=== PATIENT | female | born 1955 | race Caucasian/White ===

== ENCOUNTER → 2016-11-08 | Outpatient (CLI) | payer BC ==
--- NOTE | 2016-11-08 14:42 | RAD ---
Right RIBS with chest, 3 views, 11/08/2016: History: Rib pain, injury The bony structures are demineralized. No fracture is identified. There is no evidence of underlying pneumothorax, hemothorax or pulmonary infiltrate. The heart size is normal. Moderate multilevel degenerative changes are present in the spine. IMPRESSION: No acute right rib abnormality is detected.
--- NOTE | 2016-11-08 14:44 | RAD ---
Left shoulder, 3 views, 11/08/2016: History: Shoulder pain, lifting injury The bony structures are demineralized. No fracture or dislocation is identified. There is minimal periarticular soft tissue calcification at the AC joint. IMPRESSION: No acute bony abnormality is detected.
--- NOTE | 2016-11-08 14:45 | RAD ---
Right hand, 3 views, 11/08/2016: History: Hand pain, fourth digit locking There is patchy bony demineralization. There are mild degenerative changes at scattered interphalangeal and MCP joints as well as the first CMC joint. No fracture or dislocation is identified. IMPRESSION: 1. Demineralization. 2. Mild scattered degenerative changes. 3. No acute bony abnormality is detected.
== END | disposition home or self-care (01) ==
LOC: DXRADRC 10:08
PROVIDERS: ATTEND Nurse Practitioner Family
DX: M19.041 Primary osteoarthritis, right hand (principal); M25.512 Pain in left shoulder; R07.81 Pleurodynia; M47.899 Other spondylosis, site unspecified
CPT/HCPCS: 71101; 73030; 73130

== ENCOUNTER → 2017-03-07 | Outpatient (CLI) | payer BC ==
--- NOTE | 2017-03-07 11:20 | RAD ---
DATE: March 07, 2017 EXAM: MAMMO CASI SCREENING BILATERAL HISTORY: Screening study. COMPARISON: 2015 and 2017 This study was interpreted with the benefit of Computerized Aided Detection (CAD). FINDINGS: The breast parenchyma is replaced with adipose tissue. There are no dominant suspicious masses, suspicious microcalcifications or evidence of architectural distortion. IMPRESSION: No mammographic indicators for malignancy. BI-RADS CATEGORY: 1 NEGATIVE RECOMMENDED FOLLOW-UP: 12M 12 MONTH FOLLOW-UP PQRS compliance statement: Patient information was entered into a reminder system with a target due date March 08, 2018 for the next mammogram. Mammography is a sensitive method for finding small breast cancers, but it does not detect them all and is not a substitute for careful clinical examination. A negative mammogram does not negate a clinically suspicious finding and should not result in delay in biopsying a clinically suspicious abnormality. "Our facility is accredited by the [employer] Mammography Program." The patient's breast density may affect the ability of mammography to detect breast cancer. There are 4 categories of breast density, A, B, C and D. Breast density A means that most of the breast tissue is replaced with adipose tissue and therefore is not dense. Breast density B means that the breast tissue is mildly dense and scattered. Breast density C means that the breast tissue is heterogeneously dense. Breast density D means that the breast tissue is very dense. Breast densities especially C and D may decrease the sensitivity of mammography to detect breast cancer. Therefore, the patient may benefit from 3-D breast mammography (3D breast tomography) as a part of their screening mammogram. Insurance may or may not pay for this additional imaging. The patient's breast density based on today's mammogram is category A.
== END | disposition home or self-care (01) ==
LOC: MAMMO 08:46
PROVIDERS: ATTEND Nurse Practitioner Family
DX: Z12.31 Encounter for screening mammogram for malignant neoplasm of breast (principal); N18.2 Chronic kidney disease, stage 2 (mild)
CPT/HCPCS: 77063; 77067

== ENCOUNTER → 2018-03-22 | Outpatient (CLI) | payer BC ==
--- NOTE | 2018-03-22 08:30 | RAD ---
Examination: HAND RIGHT 3V, WRIST 2V RIGHT History: Pain Comparison/Correlation: None Findings: Frontal and lateral views of the right wrist were obtained. Total 3 images of the right hand were obtained. Osteopenia noted. Degenerative narrowing of the third metacarpophalangeal joint with spurring noted. Degenerative changes of the distal radioulnar joint with spurring noted. Degenerative changes of the interphalangeal joint of the first digit and the distal interphalangeal joint of the second digit noted. No acute fracture or bony destruction. Soft tissues are grossly unremarkable. Impression: Degenerative changes. No acute process. Electronically signed by: Pardeep Best MD (03/22/2018 8:27 AM) [id number]
== END | disposition home or self-care (01) ==
LOC: PMG 08:09
PROVIDERS: ATTEND Physician Assistant Medical
DX: M19.031 Primary osteoarthritis, right wrist (principal); M77.8 Other enthesopathies, not elsewhere classified; M19.041 Primary osteoarthritis, right hand; M85.841 Other specified disorders of bone density and structure, right hand
CPT/HCPCS: 73100; 73130

== ENCOUNTER → 2018-05-29 | Outpatient (CLI) | payer BC ==
--- NOTE | 2018-05-29 17:22 | RAD ---
Right wrist 3 views. HISTORY: Injury to wrist 3 views were taken of the right wrist. There is not evidence of an acute fracture or acute osseous abnormality. There is mild arthritis at the first carpometacarpal joint with mild spurring. IMPRESSION: 1. No acute fracture noted in the right wrist. Electronically signed by: Ruslan Parson MD (05/29/2018 5:19 PM) [id number]
== END | disposition home or self-care (01) ==
LOC: PMG 10:20
PROVIDERS: ATTEND Physician Assistant Medical
DX: M18.9 Osteoarthritis of first carpometacarpal joint, unspecified (principal); M77.8 Other enthesopathies, not elsewhere classified
CPT/HCPCS: 73110

== ENCOUNTER → 2018-05-31 | Outpatient (CLI) | payer BC ==
--- NOTE | 2018-05-31 14:52 | RAD ---
DATE: 05/31/2018 EXAM: MAMMO CASI SCREENING BILATERAL HISTORY: Routine screening COMPARISON: 03/07/2017, 03/02/2016, 04/04/2015, 01/20/2012 mammographic exams This study was interpreted with the benefit of Computerized Aided Detection (CAD). Breast Density: FATTY The breast parenchyma is primarily fatty replaced. Breast parenchyma level density A. FINDINGS: Benign calcifications are stable. No masses or distortion. IMPRESSION: Benign findings. BI-RADS CATEGORY: 1 NEGATIVE RECOMMENDED FOLLOW-UP: 12M 12 MONTH FOLLOW-UP PQRS compliance statement: Patient information was entered into a reminder system with a target due date in one year for the next mammogram. Mammography is a sensitive method for finding small breast cancers, but it does not detect them all and is not a substitute for careful clinical examination. A negative mammogram does not negate a clinically suspicious finding and should not result in delay in biopsying a clinically suspicious abnormality. "Our facility is accredited by the [employer] Mammography Program."
== END | disposition home or self-care (01) ==
LOC: MAMMO 08:57
PROVIDERS: ATTEND Physician Assistant Medical
DX: Z12.31 Encounter for screening mammogram for malignant neoplasm of breast (principal); R92.8 Other abnormal and inconclusive findings on diagnostic imaging of breast
CPT/HCPCS: 77063; 77067

== ENCOUNTER 2019-06-21 20:22 | Emergency (ER) | payer MEDICARE, BC ==
[~2019-06-21] VITALS: Ht 167.6 cm; Wt 94.5 kg
[2019-06-21 20:22] VITALS: BP 110/68
--- NOTE | 2019-06-21 20:32 | PHYS DOC ---
Past History Past Medical History: Hypertension Past Surgical History: Hysterectomy, Knee Replacement, Other (shoulder) Smoking: Non-smoker Alcohol Use: None Drug Use: None General Adult EDM: Chief Complaint: nausea/vomiting and diarrhea, short of air HPI: HPI: Patient is a 63 year old female who presents for evaluation via EMS of recurrent episodes of nausea, vomiting and diarrhea that started earlier today. Furthermore she has been short of air as well. She does have the feeling of occasional palpitations. She is complaining of some pain in her epigastric area. She is concerned that she may have some gallbladder problems as well. There had been mention of atrial fibrillation but she states that she has never been diagnosed with that condition. Patient is not on a blood thinner. Patient came in with COVID precautions because of her reported shortness of air Review of Systems: Review of Systems: Constitutional: Denies fever or chills Eyes: Denies change in visual acuity HENT: Denies nasal congestion or sore throat Respiratory: Denies cough or shortness of breath Cardiovascular: Denies chest pain or edema GI: has upper abdominal pain with nausea, vomiting, and diarrhea, no bloody stools : Denies dysuria Musculoskeletal: Denies back pain or joint pain Integument: Denies rash Neurologic: Denies headache, focal weakness or sensory changes Endocrine: Denies polyuria or polydipsia Lymphatic: Denies swollen glands Psychiatric: Denies depression or anxiety Heart Score: Risk Factors: Risk Factors: DM, Current or recent (<one month) smoker, HTN, HLP, family history of CAD, obesity. Risk Scores: Score 0 - 3: 2.5% MACE over next 6 weeks - Discharge Home Score 4 - 6: 20.3% MACE over next 6 weeks - Admit for Clinical Observation Score 7 - 10: 72.7% MACE over next 6 weeks - Early Invasive Strategies Current Medications: Current Meds: Current Medications Medications (Trade) Dose Ordered Sig/Karlee Start Time Stop Time Status Last Admin Dose Admin Ondansetron HCl (Zofran) 4 mg 1X ONCE 06/21/19 20:30 06/21/19 20:31 UNV Sodium Chloride 1,000 ml @ 1,000 mls/hr 1X ONCE 06/21/19 20:30 06/21/19 21:29 UNV Physical Exam: PE: Constitutional: Well developed, well nourished, mild to moderate distress, non- toxic appearance. [] HENT: Normocephalic, atraumatic, bilateral external ears normal, oropharynx moist, no oral exudates, nose normal. [] Eyes: PERRL, EOMI, conjunctiva normal, no discharge. [] Neck: Normal range of motion, no tenderness, supple, no stridor. [] Cardiovascular:Heart rate tachy rate and rhythm, no murmur [] Lungs & Thorax: Bilateral breath sounds clear to auscultation [] Abdomen: Bowel sounds normal, soft, upper abdominal tenderness, no masses, no pulsatile masses. [] Skin: Warm, dry, no erythema, no rash. [] Back: No tenderness, no CVA tenderness. [] Extremities: No tenderness, no cyanosis, no clubbing, ROM intact, no edema. [] Neurologic: Alert and oriented X 3, normal motor function, normal sensory function, no focal deficits noted. [] Psychologic: Affect normal, judgement normal, mood normal. [] Current Patient Data: Labs: Laboratory Tests Test 06/21/19 21:11 White Blood Count 16.3 x10^3/uL Red Blood Count 4.76 x10^6/uL Hemoglobin 15.0 g/dL Hematocrit 45.6 % Mean Corpuscular Volume 96 fL Mean Corpuscular Hemoglobin 32 pg Mean Corpuscular Hemoglobin Concent 33 g/dL Red Cell Distribution Width 13.7 % Platelet Count 368 x10^3/uL Neutrophils (%) (Auto) 80 % Lymphocytes (%) (Auto) 13 % Monocytes (%) (Auto) 6 % Eosinophils (%) (Auto) 0 % Basophils (%) (Auto) 1 % Neutrophils # (Auto) 13.0 x10^3uL Lymphocytes # (Auto) 2.2 x10^3/uL Monocytes # (Auto) 1.0 x10^3/uL Eosinophils # (Auto) 0.0 x10^3/uL Basophils # (Auto) 0.1 x10^3/uL Segmented Neutrophils % 73 % Band Neutrophils % 4 % Lymphocytes % 20 % Monocytes % 3 % Platelet Estimate Adequate Sodium Level 137 mmol/L Potassium Level 3.6 mmol/L Chloride Level 100 mmol/L Carbon Dioxide Level 25 mmol/L Anion Gap 12 Blood Urea Nitrogen 23 mg/dL Creatinine 1.8 mg/dL Estimated GFR (Cockcroft-Gault) 28.2 BUN/Creatinine Ratio 13 Glucose Level 167 mg/dL Calcium Level 9.9 mg/dL Total Bilirubin 2.8 mg/dL Aspartate Amino Transf (AST/SGOT) 486 U/L Alanine Aminotransferase (ALT/SGPT) 405 U/L Alkaline Phosphatase 78 U/L Troponin I Quantitative < 0.017 ng/mL Total Protein 7.7 g/dL Albumin 3.9 g/dL Albumin/Globulin Ratio 1.0 Lipase 69531 U/L Current Medications Medications (Trade) Dose Ordered Sig/Karlee Route PRN Reason Start Time Stop Time Status Last Admin Dose Admin Ondansetron HCl (Zofran) 4 mg 1X ONCE IVP 06/21/19 21:20 06/21/19 21:21 DC 06/21/19 21:13 Sodium Chloride 1,000 ml @ 1,000 mls/hr 1X ONCE IV 06/21/19 21:20 06/21/19 22:19 DC 06/21/19 21:13 EKG: EKG: Sinus tacky rate high 90s, leftward axis, artifact present, otherwise unremarkable EKG, not STEMI, read at 2100 Radiology/Procedures: Radiology/Procedures: [place] [address] IMAGING REPORT Signed PATIENT: ALEXSANDRA GUEVARA ACCOUNT: [id number] : 1955 LOCATION: ER AGE: 63 SEX: F EXAM STATUS: REG ER ORD. PHYSICIAN: URIEL FROST DO REASON: short of air PROCEDURE: CHEST AP ONLY INDICATION: Shortness of air COMPARISON: November 2016 FINDINGS: Single view of chest obtained. Mild linear opacity right upper lung could be scarring or atelectasis. No definite additional region of focal airspace consolidation. Cardiac silhouette is unremarkable given portable technique. IMPRESSION: * Linear opacity right lung could be secondary to scarring or atelectasis. No definite lobar infiltrate. Electronically signed by: Alix Tucker MD (06/21/2019 9:18 PM) [id number] DICTATED AND SIGNED BY: ALIX TUCKER MD DATE: 06/21/19 2118 CC: NAYE GUTIÉRREZ; UIREL FROST DO ~ Course & Med Decision Making: Course & Med Decision Making Pertinent Labs and Imaging studies reviewed. (See chart for details) 2[address] case was discussed with Dr. Partida and we agreed patient would be better served at a higher level of care facility where they have general surgery and GI capability. Patient agreed to transfer to [facility] [address] Dr. Luke is the accepting hospitalist to [facility]. Pt is medically stable for transfer. Dragon Disclaimer: Dragon Disclaimer: This electronic medical record was generated, in whole or in part, using a voice recognition dictation system. Departure Departure: Impression: Primary Impression: Acute pancreatitis Additional Impressions: Nausea & vomiting Renal insufficiency Disposition: TRANSFER OTHER ([facility]) Condition: STABLE Referrals: NAYE GUTIÉRREZ (PCP) COVID-19 Assessment COVID-19 Patient Risks: Age 65 or older: Yes Sign of co-morbidity: Yes Exp to person + for COVID: No Exp to PUI: No Travel from affected area: No Lower respiratory symptoms: No Fever: No Other: Yes Comments: pt has diarrhea PPE Use: Full PPE with N95 mask or PAPR: Yes URIEL FROST DO June 21, 2019 20:32
[2019-06-21] MEDS ORDERED: ONDANSETRON PF 4 MG/2 ML VIAL. IVP ONE (21:20)
[2019-06-21] MEDS ORDERED: IV NORMAL SALINE 1,000ML 1,000 ML IV ONE (21:20)
--- NOTE | 2019-06-21 21:21 | RAD ---
INDICATION: Shortness of air COMPARISON: November 2016 FINDINGS: Single view of chest obtained. Mild linear opacity right upper lung could be scarring or atelectasis. No definite additional region of focal airspace consolidation. Cardiac silhouette is unremarkable given portable technique. IMPRESSION: * Linear opacity right lung could be secondary to scarring or atelectasis. No definite lobar infiltrate. Electronically signed by: Nick Summers MD (06/21/2019 9:18 PM) [id number]
[2019-06-21 21:26] LABS: BASO # 0.1 x10^3/uL (0.0-0.2); BASO % 1 % (0-3); EOS % 0 % (0-3); HEMATOCRIT 45.6 % (36.0-47.0); LYMPH # 2.2 x10^3/uL (1.0-4.8); LYMPH % 13 % (24-48); MEAN CORPUSCULAR HEMOGLOBIN 32 pg (25-35); MEAN CORPUSCULAR HGB CONC 33 g/dL (31-37); MEAN CORPUSCULAR VOLUME 96 fL (79-100); MONO % 6 % (0-9); NEUT % 80 % (31-73); PLATELET COUNT 368 x10^3/uL (140-400); RED BLOOD COUNT 4.76 x10^6/uL (3.50-5.40); RED CELL DISTRIBUTION WIDTH 13.7 % (11.5-14.5); WHITE BLOOD COUNT 16.3 x10^3/uL (4.0-11.0)
[2019-06-21 21:35] LABS: CALCIUM 9.9 mg/dL (8.5-10.1); CREATININE 1.8 mg/dL (0.6-1.0); GFR 28.2; POTASSIUM 3.6 mmol/L (3.5-5.1)
[2019-06-21 21:42] LABS: % BANDS 4 % (0-9); % LYMPHS 20 % (24-48); % MONOS 3 % (0-10); % SEGS 73 % (35-66); ALBUMIN 3.9 g/dL (3.4-5.0); PLT ESTIMATE ADEQUATE (ADEQUATE); TOTAL BILIRUBIN 2.8 mg/dL (0.2-1.0); TOTAL PROTEIN 7.7 g/dL (6.4-8.2)
--- NOTE | 2019-06-22 07:11 | EKG ---
[address] [address] Test Date: 2019-06-21 Test Time: 20:47:30 Pat Name: ALEXSANDRA GUEVARA Department: Room: Gender: Web Marketing Intern: : 1955 Requested By: URIEL FROST Order Number: [id number] Reading MD: Nirav Lucas Measurements Intervals [place] Rate: P: IA: QRS: QRSD: T: QT: QTc: Interpretive Statements No previous ECG available for comparison Electronically Signed On 06-22-2019 8:42:23 CDT by Nirav Lucas
== END 2019-06-21 23:38 | disposition short-term general hospital (02) ==
LOC: ER 20:22
DX: K85.90 Acute pancreatitis without necrosis or infection, unspecified (principal); N28.9 Disorder of kidney and ureter, unspecified; R11.2 Nausea with vomiting, unspecified; I10 Essential (primary) hypertension; Z90.710 Acquired absence of both cervix and uterus
CPT/HCPCS: 36415; 71045; 80053; 83690; 84484; 85007; 85025; 93005; 96361; 96374; 96375; 99285; J2405; J3010; J7030

== ENCOUNTER → 2019-06-21 | Outpatient (CLI) | payer MEDICARE, BC ==
--- NOTE | 2019-06-22 17:44 | RAD ---
DATE: 06/21/2019 10:40 AM EXAM: MAMMO CASI SCREENING BILATERAL HISTORY: Screening COMPARISON: 05/31/2018 Bilateral CC and MLO views of the breasts were performed. Bilateral breast tomosynthesis was performed in CC and MLO projections. This study was interpreted with the benefit of Computerized Aided Detection (CAD). FINDINGS: Breast Density: FATTY The Breast Parenchyma is primarily fatty replaced. Breast parenchyma level density A. No suspicious masses, microcalcifications or architectural distortion is present to suggest malignancy in either breast. The visualized axillae are unremarkable. IMPRESSION: No mammographic evidence of malignancy. BI-RADS CATEGORY: 1 NEGATIVE RECOMMENDED FOLLOW-UP: 12M 12 MONTH FOLLOW-UP Annual screening mammography is recommended, unless clinically indicated sooner based on symptoms or change in physical exam. PQRS compliance statement: Patient information was entered into a reminder system with a target due date 06/21/2020 for the next mammogram. Mammography is a sensitive method for finding small breast cancers, but it does not detect them all and is not a substitute for careful clinical examination. A negative mammogram does not negate a clinically suspicious finding and should not result in delay in biopsying a clinically suspicious abnormality. "Our facility is accredited by the [employer] Mammography Program."
== END ==
LOC: MAMMO 10:35
PROVIDERS: ATTEND Physician Assistant
DX: Z12.31 Encounter for screening mammogram for malignant neoplasm of breast (principal)
CPT/HCPCS: 77063; 77067

== ENCOUNTER 2019-07-28 01:07 | Emergency (ER) | payer MEDICARE, BC ==
[~2019-07-28] VITALS: Ht 167.6 cm; Wt 86.3 kg
--- NOTE | 2019-07-28 01:13 | PHYS DOC ---
Past History Past Medical History: Hypertension Past Surgical History: Cholecystectomy, Hysterectomy, Knee Replacement, Other Additional Past Surgical Histo: back, shoulder, wrist Smoking: Non-smoker Alcohol Use: None Drug Use: None General Adult HPI: HPI: "..I ve had a rough time recently.... I ended up in [facility]... with bad gall stones..and pancreatitis.....then it took forever to get the COVID test back so... I could get surgery... I got my gall bladder out on 06/28.. Dr. Traore did the surgery... .. then I ended up on the cardiac floor... because my heart started acting up...I did this awake overnight monitor thing.. and just mailed it off.. and to see Dr. Lucas.. on for a follow up... Well [place].. and [place] going to work.. but I got this severe chest pain... here on Lt. ..it hurts to move.. it hurts to take a deep breath....it is almost like a knife stick.. I was going to have my drive me home..but I didn't want to leave my car there.. so he followed me home.. then I came here...".." I did see at [facility] too...".." All this crazy stuff started with the gall bladder on 06/20..." Patient is a 63 year old female who presents with above hx and complaints of left upper quadrant abdomen pain and left lower chest wall pain. Patient reports no recent coughs or fever but was recently hospitalized at [facility] for gallstones, cholecystectomy and then dysrhythmias. Patient denies any history of previous cardiac disorders other than the dysrhythmias during the admission for cholecystectomy . Patient denies any history of DVTs or pulmonary embolisms with her family members. Patient denies any history of renal stones with her or family members. Patient states pain sometimes feels like urinary tract infection and that it radiates down her left flank into her abdomen. Patient denies any bad food. Patient denies any trauma. Patient denies any recent travel outside the [place] area. Patient denies any history of immunosuppression. Patient normally follows with Mariangel Rubi and Dr. David. Review of Systems: Review of Systems: Constitutional: Denies fever or chills Eyes: Denies change in visual acuity HENT: Denies nasal congestion or sore throat Respiratory: Denies cough or shortness of breath Cardiovascular: Denies chest pain or edema GI: Denies abdominal pain, nausea, vomiting, bloody stools or diarrhea : Denies dysuria Musculoskeletal: Denies back pain or joint pain Integument: Denies rash Neurologic: Denies headache, focal weakness or sensory changes Endocrine: Denies polyuria or polydipsia Lymphatic: Denies swollen glands Psychiatric: Denies depression or anxiety Heart Score: HEART Score for Chest Pain: HEART Score for Chest Pain Response (Comments) Value History Moderately Suspicious 1 ECG Nonspecific Repolarizatio 1 Age >45 - < 65 1 Risk Factors 1 or 2 Risk Factors 1 Troponin < Normal Limit 0 Total 4 Risk Factors: Risk Factors: DM, Current or recent (<one month) smoker, HTN, HLP, family history of CAD, obesity. Risk Scores: Score 0 - 3: 2.5% MACE over next 6 weeks - Discharge Home Score 4 - 6: 20.3% MACE over next 6 weeks - Admit for Clinical Observation Score 7 - 10: 72.7% MACE over next 6 weeks - Early Invasive Strategies Family History: Family History: Noncontributory to presentation Current Medications: Current Meds: See nursing for home meds Allergies: Allergies: Allergies Coded Allergies Type Severity Reaction Last Updated Verified No Known Drug Allergies 06/21/19 No Physical Exam: PE: Constitutional: Moderate acute distress, non-toxic appearance. [] HENT: Normocephalic, atraumatic, bilateral external ears normal, oropharynx moist, no oral exudates, nose normal. [] Eyes: PERRLA, EOMI, conjunctiva normal, no discharge. [Glasses Neck: Normal range of motion, no tenderness, supple, no stridor. [] Cardiovascular:Heart rate regular rhythm, no murmur. Did have [] occasional PVC and PAC on monitor. Lungs & Thorax: Bilateral breath sounds equal at apex on auscultation . Left lower chest wall pain is reproducible of cough deep breaths and palpation] Abdomen: Bowel sounds decreased, soft, left upper quadrant tenderness, no masses, no pulsatile masses. [] Recent surgery scars are healing well. Did have rebound to left upper quadrant. Skin: Warm, dry, no erythema, no rash. [] Back: No tenderness, no CVA tenderness. [] Extremities: No tenderness, no cyanosis, no clubbing, ROM intact, no edema. No cording appreciated in the legs Neurologic: Alert and oriented X 3, normal motor function, normal sensory function, no focal deficits noted. [] Psychologic: Affect anxious, judgement normal, mood normal. [] EKG: EKG: My interpretation EKG shows a sinus rhythm at 79 bpm with occasional PVCs and PACs. Does have leftward axis. No findings of acute STEMI of contralateral changes. [] Radiology/Procedures: Radiology/Procedures: [][place] [address] IMAGING REPORT Signed PATIENT: ALEXSANDRA GUEVARA ACCOUNT: [id number] : 1955 LOCATION: ER AGE: 63 SEX: F EXAM STATUS: REG ER ORD. PHYSICIAN: TORITO NAVA MD REASON: Pain, nause and vomiting, cough, x 2 weeks PROCEDURE: ABDOMEN SUPINE & UPRIGHT EXAM: 1. CHEST 2 VIEWS. 2. ABDOMEN 2 VIEWS. HISTORY: Pain, nausea/vomiting, cough. COMPARISON: None. FINDINGS: There are no confluent infiltrates. A calcific density on the lateral projection may be pericardial cyst unclear. There is no pneumothorax or pleural effusion. The heart is not enlarged. Cholecystectomy clips are noted. There is no pneumoperitoneum. There are no distended small bowel loops or significant air-fluid levels. There is gas distally. There is a moderate lumbar dextroscoliosis with moderate degenerative disc disease. A left upper pole renal calculus measures 3 mm. IMPRESSION: 1. No confluent infiltrates. 2. No evidence of obstruction. 3. 3 mm left upper pole renal calculus. Electronically signed by: Akhil Machado MD (07/28/2019 3:27 AM) [facility] DICTATED AND SIGNED BY: EDENILSON MACHADO MD DATE: 07/28/19 0327 CC: TORITO NAVA MD; AYO DAVID MD ~ Course & Med Decision Making: Course & Med Decision Making Pertinent Labs and Imaging studies reviewed. (See chart for details) Discussed presentation, testing and tx plan with Dr. Jolly. Discussed presentation, testing and tx. plan with Dr. Traore. Impression: 1. Lt.upper quadrant Abdomen pain 2. Lt. Lower chest and flank pain 3. Anemia Hgb. 11.9 4. DM 148 gluc 5. Elevated Creat 1.1 6. Elevated Lipase 2,404 7. Elevated D-dimer 5.39 8. Hematuria 9. Hemorrhagic pancreatitis 10. Cholecystectomy06/28 [] Germania Disclaimer: German[place] Disclaimer: This electronic medical record was generated, in whole or in part, using a voice recognition dictation system. Departure Departure: Disposition: HOME/RESIDENCE PRIOR TO ADM Condition: STABLE Referrals: AYO DAVID MD (PCP) TORITO NAVA MD Jul 28, 2019 01:13
[2019-07-28] MEDS ORDERED: IV RINGERS SOLUTION,LACTATED 1,000 ML IV SCH (01:14)
[2019-07-28 02:52] LABS: BASO # 0.1 x10^3/uL (0.0-0.2); BASO % 1 % (0-3); EOS # 0.2 x10^3/uL (0.0-0.7); EOS % 2 % (0-3); HEMATOCRIT 35.8 % (36.0-47.0); HEMOGLOBIN 11.9 g/dL (12.0-15.5); LYMPH # 1.8 x10^3/uL (1.0-4.8); LYMPH % 19 % (24-48); MEAN CORPUSCULAR HEMOGLOBIN 32 pg (25-35); MEAN CORPUSCULAR HGB CONC 33 g/dL (31-37); MEAN CORPUSCULAR VOLUME 95 fL (79-100); MONO # 0.6 x10^3/uL (0.0-1.1); MONO % 6 % (0-9); NEUT # 6.8 x10^3uL (1.8-7.7); NEUT % 72 % (31-73); PLATELET COUNT 280 x10^3/uL (140-400); RED BLOOD COUNT 3.77 x10^6/uL (3.50-5.40); RED CELL DISTRIBUTION WIDTH 13.9 % (11.5-14.5); WHITE BLOOD COUNT 9.5 x10^3/uL (4.0-11.0)
[2019-07-28 03:01] LABS: CALCIUM 8.7 mg/dL (8.5-10.1); CREATININE 1.1 mg/dL (0.6-1.0); GFR 49.8
[2019-07-28 03:07] LABS: ALBUMIN 3.2 g/dL (3.4-5.0); DIRECT BILIRUBIN 0.3 mg/dL (0.0-0.2); MAGNESIUM 1.9 mg/dL (1.8-2.4); TOTAL BILIRUBIN 0.7 mg/dL (0.2-1.0); TOTAL PROTEIN 6.7 g/dL (6.4-8.2)
--- NOTE | 2019-07-28 03:30 | RAD ---
EXAM: 1. CHEST 2 VIEWS. 2. ABDOMEN 2 VIEWS. HISTORY: Pain, nausea/vomiting, cough. COMPARISON: None. FINDINGS: There are no confluent infiltrates. A calcific density on the lateral projection may be pericardial cyst unclear. There is no pneumothorax or pleural effusion. The heart is not enlarged. Cholecystectomy clips are noted. There is no pneumoperitoneum. There are no distended small bowel loops or significant air-fluid levels. There is gas distally. There is a moderate lumbar dextroscoliosis with moderate degenerative disc disease. A left upper pole renal calculus measures 3 mm. IMPRESSION: 1. No confluent infiltrates. 2. No evidence of obstruction. 3. 3 mm left upper pole renal calculus. Electronically signed by: Akhil Machado MD (07/28/2019 3:27 AM) [facility]
[2019-07-28] MEDS ORDERED: IV RINGERS SOLUTION,LACTATED 1,000 ML IV ONE ×2 (04:00→06:30)
[2019-07-28] MEDS ORDERED: MORPHINE SULFATE 4 MG/ML DISP.SYRIN. IV ONE (04:00)
[2019-07-28 04:05] LABS: BACTERIA,URINE MOD /HPF (0-FEW); BILIRUBIN,URINE NEG (NEG); CLARITY,URINE HAZY; COLOR,URINE AMBER; GLUCOSE,URINE NEG (NEG); NITRITE,URINE NEG (NEG); RBC,URINE >40 /HPF (0-2); SQUAMOUS EPITHELIAL CELL,UR MOD /LPF; UROBILINOGEN,URINE 0.2 mg/dL (0.2 mg/dL); WBC,URINE OCC /HPF (0-4)
[2019-07-28 04:06] LABS: AMORPHOUS SEDIMENT,UR PRESENT /HPF; GRANULAR CASTS,URINE OCC /HPF; YEAST,URINE PRESENT /HPF
[2019-07-28 04:12] LABS: AMPHETAMINE/METHAMPHETAMINE NEG (NEG); BARBITURATES NEG (NEG); BENZODIAZEPINES NEG (NEG); CANNABINOIDS NEG (NEG); COCAINE NEG (NEG); METHADONE NEG (NEG); OPIATES NEG (NEG); PHENCYCLIDINE NEG (NEG)
[2019-07-28] MEDS ORDERED: CONTRAST GIVEN MC PRN (04:30)
[2019-07-28] MEDS ORDERED: ENOXAPARIN ** NOTE DOSE ** SYRINGE SQ ONE (05:00)
[2019-07-28] MEDS ORDERED: IOHEXOL 350 MG/ML 100 ML VIAL. IV ONE (05:00)
--- NOTE | 2019-07-28 06:07 | RAD ---
EXAM: 1. CT OF THE CHEST WITH AND WITHOUT CONTRAST. 2. CT OF THE ABDOMEN/PELVIS WITH CONTRAST. HISTORY: Chest and abdominal pain. TECHNIQUE: Computed tomographic angiography of the chest was performed after the intravenous administration of iodinated contrast. Three-dimensional reconstructions were also performed. CT of the abdomen and pelvis was performed after intravenous contrast. One or more of the following individualized dose reduction techniques were utilized for this examination: 1. Automated exposure control. 2. Adjustment of the mA and/or kV according to patient size. 3. Use of iterative reconstruction technique. COMPARISON: None. FINDINGS: Bone windows reveal no suspicious lesions. There are no pathologically enlarged mediastinal or axillary lymph nodes. There is no pleural or pericardial effusion. The heart is not enlarged. There is mild distal esophageal wall thickening. There is a small amount of ascites in a small hiatal hernia. Lung windows reveal mild basilar atelectasis. A heterogeneously hyperattenuating collection occupies the site of the pancreatic body and tail, consistent with hemorrhagic pancreatitis. It measures 14 x 7 cm transaxially. There is mild mass effect on the adjacent greater curvature of the stomach. The splenic vein is compressed but remains patent. Normal enhancing pancreatic requesting along the head, but the remainder is hypoenhancing or difficult to identify. There is no clear pseudoaneurysm. Another small fluid collection along the lateral aspect of the gastric greater curvature measures 5 x 2.3 cm. There is also secondary wall thickening of the colonic splenic flexure. The gallbladder is surgically absent. The common duct measures 9 mm. It tapers normally distally. The adrenal glands are unremarkable. A left renal calculus measures 5 mm. The right kidney is unremarkable. There are no pathologically enlarged lymph nodes. The appendix is at the upper limit of normal caliber. There is a small amount of adjacent fluid but this is likely secondary to small pelvic ascites. The uterus is surgically absent. There is no small bowel obstruction. IMPRESSION: 1. Findings consistent with hemorrhagic pancreatitis. A heterogeneous hyperattenuating collection occupies the site of the pancreatic body and tail and measures 14 x 7 cm. 2. Secondary inflammation of the colonic splenic flexure and the greater curvature of the stomach. The splenic vein is compressed but patent. 3. No pulmonary embolism. No aortic dissection or aneurysm. 4. Findings consistent with distal esophagitis. 5. Mild extrahepatic biliary dilatation status post cholecystectomy. Correlate for cholestasis to assess significance. Electronically signed by: Akhil Machado MD (07/28/2019 6:04 AM) [facility]
[2019-07-28 06:33] VITALS: BP 111/73
[2019-07-28] MEDS ORDERED: cefTRIAXone SODIUM 1 GM VIAL ONE (06:35)
[2019-07-28] MEDS ORDERED: IV NORMAL SALINE 50ML 50 ML ONE (06:35)
--- NOTE | 2019-07-28 19:59 | EKG ---
[address] [address] Test Date: 2019-07-28 Test Time: 02:29:10 Pat Name: ALEXSANDRA GUEVARA Department: Room: Gender: F Rn Otolaryngology: : 1955 Requested By: TORITO NAVA Order Number: [id number] Reading MD: Measurements Intervals [place] Rate: 79 P: 6 UT: 162 QRS: -1 QRSD: 84 T: 30 QT: 400 QTc: 460 Interpretive Statements SINUS RHYTHM VENTRICULAR PREMATURE COMPLEX(ES) ATRIAL PREMATURE COMPLEX(ES) LEFTWARD AXIS ABNORMAL ECG RI6.02 No previous ECG available for comparison
== END 2019-07-28 08:45 | disposition short-term general hospital (02) ==
LOC: ER 01:07
DX: R10.12 Left upper quadrant pain (principal); R07.89 Other chest pain; D64.9 Anemia, unspecified; R79.89 Other specified abnormal findings of blood chemistry; R79.1 Abnormal coagulation profile; R31.9 Hematuria, unspecified; K85.90 Acute pancreatitis without necrosis or infection, unspecified; R74.8 Abnormal levels of other serum enzymes; I10 Essential (primary) hypertension; Z90.49 Acquired absence of other specified parts of digestive tract; Z90.710 Acquired absence of both cervix and uterus
CPT/HCPCS: 36415; 71046; 71275; 74019; 74176; 74177; 80048; 80076; 80307; 81001; 82550; 83605; 83690; 83735; 84484; 85025; 85379; 85610; 85730; 87086; 93005; 96372; 96374; 96375; 99285; J0696; J1650; J2270; J3490; J7120; Q9967; U0003

== ENCOUNTER → 2019-08-14 | Outpatient (CLI) | payer MEDICARE, BC ==
[2019-07-28 06:33] VITALS: BP 111/73
[~2019-08-14] MED LIST: IOHEXOL 300 MG/ML 75 ML VIAL. IV ONE
--- NOTE | 2019-08-14 13:24 | RAD ---
CT scan of the abdomen with contrast 08/14/2019 CLINICAL HISTORY: Pancreatic pseudocyst. TECHNIQUE: After the intravenous administration of 60 cc Omnipaque 300, contiguous, 5 mm axial sections were obtained through the abdomen. One or more of the following individualized dose reduction techniques were utilized for this study: 1. Automated exposure control. 2. Adjustment of the mA and/or kV according to patient size. 3. Use of iterative reconstruction technique. FINDINGS: Comparison study is dated 09/27/2019. Images through the lung bases demonstrate minimal dependent subsegmental atelectasis bilaterally. The liver, spleen, and adrenal glands are within normal limits. Nonobstructing calculi are seen involving both kidneys which measure 2 to 6 mm in size. An oval-shaped fluid collection is seen occupying the majority of the body/tail of pancreas extending to the left abdomen inferior to the spleen. This fluid collection measures 16.3 x 7.2 x 7.0 cm and transverse, craniocaudal and AP dimensions. It is consistent with a pancreatic pseudocyst. It has become well defined since the previous examination. The hemorrhage seen throughout the pancreas on the previous study has resolved. The inflammatory changes surrounding the pancreas have significantly improved. Smaller pseudocysts are seen within the left upper quadrant of the abdomen anterior and superior to the spleen. These measure 1.5 to 3.1 cm in size. No additional abnormal fluid collection is seen. Atherosclerotic calcification of the abdominal aorta and its branches is noted. The abdominal aorta tapers normally. Surgical clips are seen within the gallbladder fossa consistent with cholecystectomy. No free fluid or free air is seen within the abdomen. There is no evidence of bowel obstruction. The osseous structures are unchanged. IMPRESSION: Interval development of a 16.3 cm pseudocyst which involves the majority of the body/tail of pancreas. Smaller pseudocysts are seen within the left upper quadrant of the abdomen more superiorly which measure 1.5 to 3.1 cm in size. The areas of hemorrhage seen within the inflamed pancreas on the previous examination have resolved. The inflammatory changes surrounding the pancreas have improved. Electronically signed by: Yobany Rizzo MD (08/14/2019 1:21 PM) [id number]
== END ==
LOC: CT 08:12
PROVIDERS: ATTEND Internal Medicine Gastroenterology
DX: K86.3 Pseudocyst of pancreas (principal); I70.0 Atherosclerosis of aorta; Z90.49 Acquired absence of other specified parts of digestive tract
CPT/HCPCS: 74160; Q9967

== ENCOUNTER → 2019-08-29 | Outpatient (CLI) | payer MEDICARE, BC ==
--- NOTE | 2019-08-29 10:33 | RAD ---
EXAM: CT ABDOMEN/PELVIS WITH CONTRAST. HISTORY: Pancreatic pseudocyst. TECHNIQUE: Computed tomography of the abdomen and pelvis was performed after the intravenous administration of iodinated contrast. One or more of the following individualized dose reduction techniques were utilized for this examination: 1. Automated exposure control. 2. Adjustment of the mA and/or kV according to patient size. 3. Use of iterative reconstruction technique. COMPARISON: 08/14/2019. FINDINGS: Lung windows through the visualized portions of the bases reveal mild atelectasis. Bone windows reveal no suspicious lesions. A large pseudocyst replaces the majority of the pancreatic body and tail. It measures 17.2 x 7.6 cm transaxially and is not clearly changed. It encases the splenic artery proximally. There is mass effect on the splenic vein which is severely narrowed near the portosplenic confluence, but it remains patent. There is also mass effect on the fundus and body of the stomach. Smaller fluid collections in the region of the gastrosplenic ligament are slightly decreased in size. The largest measures 2.5 cm. The remaining portion of the pancreatic head parenchyma enhances normally. The pancreatic duct does not appear dilated. The gallbladder is surgically absent. The common duct is not dilated. The liver, spleen, adrenal glands and right kidney are unremarkable. A calculus in the left renal upper pole measures 6 mm. There are no pathologically enlarged lymph nodes. The uterus is surgically absent. Sigmoid diverticulosis is mild. The appendix is not inflamed. There is no small bowel obstruction. IMPRESSION: 1. No clear interval change in a large 17 x 8 cm pseudocyst replacing the majority of the pancreatic body and tail. It exerts mass effect on the stomach and splenic vein, and encases the proximal splenic artery. 2. Small pseudocysts within the gastrosplenic ligament are slightly decreased in size measuring up to 2.5 cm. 3. 6 mm left renal calculus. Electronically signed by: Akhil Machado MD (08/29/2019 10:30 AM) [id number]
== END | disposition home or self-care (01) ==
LOC: CT 09:08
PROVIDERS: ATTEND Internal Medicine Gastroenterology
DX: K57.30 Diverticulosis of large intestine without perforation or abscess without bleeding (principal); N20.0 Calculus of kidney; K31.89 Other diseases of stomach and duodenum; K86.3 Pseudocyst of pancreas; Z87.19 Personal history of other diseases of the digestive system
CPT/HCPCS: 74177; Q9967

== ENCOUNTER → 2019-09-28 | Outpatient (CLI) | payer MEDICARE, BC ==
[~2019-09-28] MED LIST changes: +CONTRAST GIVEN. MC PRN; +IOHEXOL 240 MG/ML 50ML VIAL. ONE; +IOHEXOL 240 MG/ML 50ML VIAL. PO ONE
[2019-09-28 09:07] LABS: CREATININE 1.3 mg/dL (0.6-1.0)
--- NOTE | 2019-09-29 11:25 | RAD ---
EXAM: CT ABDOMEN/PELVIS WITH CONTRAST. HISTORY: Pancreatic pseudocyst. TECHNIQUE: Computed tomography of the abdomen and pelvis was performed after the intravenous administration of iodinated contrast. One or more of the following individualized dose reduction techniques were utilized for this examination: 1. Automated exposure control. 2. Adjustment of the mA and/or kV according to patient size. 3. Use of iterative reconstruction technique. COMPARISON: 08/29/2019. FINDINGS: Lung windows through the visualized portions of the bases reveal mild atelectasis. Bone windows reveal no suspicious lesions. There is no clear interval change in a large pseudocyst replacing the majority of the pancreatic body and tail. It measures 17 x 7.4 cm. There is mass effect along the posterior aspect of the stomach. There is some compression of the splenic vein but it remains patent. Smaller fluid collection within the gastrosplenic ligament measure up to 2.9 x 2.7 cm and are also not clearly changed. The liver, spleen, adrenal glands and right kidney are unremarkable. A left renal calculus measures 5 mm. The gallbladder is surgically absent. The uterus is surgically absent. The appendix is not inflamed. There is no small bowel obstruction. IMPRESSION: 1. Stable large pseudocyst replacing the pancreatic body and tail, measuring 17 x 7 cm. It exerts mass effect on the stomach and splenic vein. 2. Stable small pseudocysts within the gastrosplenic ligament. 3. 5 mm left renal calculus. Electronically signed by: Akhil Machado MD (09/29/2019 11:22 AM) [id number]
== END | disposition home or self-care (01) ==
LOC: CT 08:25
PROVIDERS: ATTEND Internal Medicine Gastroenterology
DX: K86.3 Pseudocyst of pancreas (principal); J98.11 Atelectasis; N20.0 Calculus of kidney; Z90.710 Acquired absence of both cervix and uterus; Z90.49 Acquired absence of other specified parts of digestive tract
CPT/HCPCS: 36415; 74177; 82565; 84520; Q9966; Q9967

== ENCOUNTER → 2020-04-09 | Outpatient (CLI) | payer MEDICARE, BC ==
--- NOTE | 2020-04-09 12:00 | RAD ---
Five-view lumbar spine dated 04/09/2020. Comparison made to CT dated 09/28/2019. CLINICAL INDICATION: Low back pain. FINDINGS: AP, lateral, bilateral oblique and coned-down views of lumbosacral junction obtained. Sagittal alignm ent is anatomic. Vertebral body heights are maintained. Moderate endplate hypertrophic changes throug hout with moderate multilevel disc space narrowing and facet arthropathy. No apparent pars defects on the oblique views. There is mild dextroconvex scoliotic curvature, unchanged. IMPRESSION: 1. No acute radiographic abnormality. 2. Moderate multilevel spondylosis. Electronically signed by: Bunny Edwards MD (04/09/2020 11:57 AM) [id number]
== END ==
LOC: PMG 09:58
PROVIDERS: ATTEND Physician Assistant
DX: M47.816 Spondylosis without myelopathy or radiculopathy, lumbar region (principal); M41.86 Other forms of scoliosis, lumbar region
CPT/HCPCS: 72110

== ENCOUNTER → 2020-07-01 | Outpatient (CLI) | payer MEDICARE, BC ==
--- NOTE | 2020-07-01 14:04 | RAD ---
EXAM: Abdomen CT without intravenous contrast. HISTORY: Pseudocyst. TECHNIQUE: Computed tomographic images of the abdomen were obtained without contrast. Multiplanar ref ormatting was performed. *One or more of the following individualized dose reduction techniques were utilized for this examina tion: 1. Automated exposure control. 2. Adjustment of the mA and/or kV according to patient size. 3. Use of iterative reconstruction technique. COMPARISON: 09/28/2019. FINDINGS: There has been resolution of a previously demonstrated large pseudocyst replacing the pancr eatic body and tail. No convincing residual pseudocyst is seen on this noncontrast exam. There is min imal stranding surrounding the pancreatic body and tail which is likely due to the sequela of prior i nflammation. There is no convincing acute pancreatitis. Evaluation of the lower thorax demonstrates atelectasis. There is no infiltrate or pleural effusion. The heart is normal in size. No hepatic lesion is seen. The gallbladder is surgically absent. There i s minimal pneumobilia due to prior biliary instrumentation. There are nonobstructing bilateral renal stones, measuring 1 mm on the right and 6 mm on the left. No suspicious renal lesion is seen on this noncontrast exam. There is no appendicitis. There is no shanna l obstruction. There are few distal colonic diverticula. There are degenerative changes involving the spine, with associated thoracolumbar scoliosis and multilevel listhesis. There is no acute osseous f inding. IMPRESSION: 1. Resolution of a previously demonstrated large pancreatic pseudocyst. Evaluation for a small residu al cystic lesion or solid pancreatic lesion is limited in the absence of contrast. No drainable colle ction is seen. There is minimal peripancreatic stranding likely due to prior inflammation. 2. Bilateral nephrolithiasis. 3. Minimal pneumobilia due to biliary instrumentation. 4. Colonic diverticulosis. Electronically signed by: Yumiko Summers MD (07/01/2020 2:02 PM) [id number]
== END ==
LOC: CT 11:36
PROVIDERS: ATTEND Internal Medicine Gastroenterology
DX: N20.0 Calculus of kidney (principal); K57.30 Diverticulosis of large intestine without perforation or abscess without bleeding; M47.816 Spondylosis without myelopathy or radiculopathy, lumbar region; M41.85 Other forms of scoliosis, thoracolumbar region
CPT/HCPCS: 74150

== ENCOUNTER → 2020-07-01 | Outpatient (CLI) | payer MEDICARE, BC ==
[~2020-07-01] MED LIST changes: -CONTRAST GIVEN. MC PRN; -IOHEXOL 240 MG/ML 50ML VIAL. PO ONE; -IOHEXOL 300 MG/ML 75 ML VIAL. IV ONE
--- NOTE | 2020-07-01 11:53 | RAD ---
EXAM: Bilateral digital screening mammogram with tomosynthesis. HISTORY: 64-year-old female presents for screening mammography. TECHNIQUE: Full-field digital craniocaudal and mediolateral oblique 2D and 3D tomosynthesis images of both breasts are obtained for evaluation. Computer aided detection was applied. COMPARISON: 06/21/2019 BREAST PARENCHYMAL DENSITY: Level A - Mostly fat. FINDINGS: There is no new suspicious mass, microcalcification or region of architectural distortion. IMPRESSION: BI-RADS Category 2: Benign finding(s). RECOMMENDATION: Annual mammography is recommended. If your mammogram demonstrates that you have dense breast tissue, which could hide abnormalities, and if you have other risk factors for breast cancer that have been identified, you might benefit from s upplemental screening tests that may be suggested by your ordering physician. Dense breast tissue, i n and of itself, is a relatively common condition. This information is not provided to cause undue c oncern, but rather to raise your awareness and to promote discussion with your physician regarding th e presence of other risk factors, in addition to dense breast tissue. A report of your mammography re sults will be sent to you and your physician. You should contact your physician if you have any ques tions or concerns regarding this report. Mammography is a sensitive method for finding small breast cancers, but it does not detect them all a nd is not a substitute for careful clinical examination. A negative mammogram does not negate a clin ically suspicious finding and should not result in delay in biopsying a clinically suspicious abnorma lity. PQRS compliance statement - Patient information was entered into a reminder system with a target due date for the next mammogram. "Our facility is accredited by the [employer] Mammography Program." Electronically signed by: Yumiko Summers MD (07/01/2020 11:50 AM) [id number]
== END ==
LOC: MAMMO 11:02
PROVIDERS: ATTEND Family Medicine
DX: Z12.31 Encounter for screening mammogram for malignant neoplasm of breast (principal)
CPT/HCPCS: 77063; 77067

== ENCOUNTER → 2020-07-08 | Outpatient (CLI) | payer MEDICARE, BC ==
--- NOTE | 2020-07-09 10:52 | CARD ---
MR#: [id number] Date of Study: 07/08/2020 Ordering Physician: MOOK DAO, Referring Physician: MOOK DAO, Tech: Denise Zapata [facility] APPROVED REPORT EXAM: Two-dimensional and M-mode echocardiogram with Doppler and color Doppler. Other Information Quality : GoodHR: 47bpm INDICATION Atrial Fibrillation RISK FACTORS Hypertension Hyperlipidemia 2D DIMENSIONS RVDd3.6 (2.9-3.5cm)Left Atrium(2D)3.5 (1.6-4.0cm) IVSd1.1 (0.7-1.1cm)Aortic Root(2D)3.0 (2.0-3.7cm) LVDd5.6 (3.9-5.9cm)LVOT Diameter2.1 (1.8-2.4cm) PWd1.1 (0.7-1.1cm)LVDs3.7 (2.5-4.0cm) FS (%) 33.4 %SV94.1 ml Aortic Valve AoV Peak Garrick.154.0cm/sAoV VTI36.9cm AO Peak GR.9.5mmHgLVOT Peak Garrick.104.4cm/s LVOT VTI 25.33cmAO Mean GR.5mmHg CHIO (VMAX)2.62ox4DMS (VTI)2.42cm2 Mitral Valve MV E Qmfcoxhg38.9cm/sMV DECEL MNKG125th MV A Gocamfwv73.7cm/sE/A Ratio1.0 Pulmonary Valve PV Peak Qqbemmlz15.7cm/sPV Peak Grad.3mmHg Tricuspid Valve TR P. Juxtnaiu069kk/sRAP CVXIEJUH2esTw TR Peak Gr.37kqFnVMOU84rlXi Pulmonary Vein S1 Nnuuknlb09.1cm/sD2 Jshqiehu99.2cm/s LEFT VENTRICLE The left ventricle is normal size. There is mild concentric left ventricular hypertrophy. The left ve ntricular systolic function is normal and the ejection fraction is within normal range. The Ejection Fraction is 50-55%. There is normal LV segmental wall motion. Transmitral Doppler flow pattern is Gra de II-pseudonormal filling dynamics. RIGHT VENTRICLE The right ventricle is borderline dilated. There is normal right ventricular wall thickness. The righ t ventricular systolic function is normal. ATRIA The left atrium size is normal. The right atrium size is normal. The interatrial septum is intact wit h no evidence for an atrial septal defect or patent foramen ovale as noted on 2-D or Doppler imaging. AORTIC VALVE The aortic valve is normal in structure and function. Doppler and Color Flow revealed trace aortic re gurgitation. There is no significant aortic valvular stenosis. Calculated aortic valve area is 2.4 cm 2 with maximum pressure gradient of 10 mmHg and mean pressure gradient of 5 mmHg. MITRAL VALVE The mitral valve is normal in structure and function. There is no evidence of mitral valve prolapse. There is no mitral valve stenosis. Doppler and Color-flow revealed trace mitral regurgitation. TRICUSPID VALVE The tricuspid valve is normal in structure and function. Doppler and Color Flow revealed trace tricus pid regurgitation with an estimated PAP of 26 mmHg. There is no tricuspid valve stenosis. PULMONIC VALVE The pulmonic valve is not well visualized. Doppler and Color Flow revealed no pulmonic valvular regur gitation. GREAT VESSELS The aortic root is normal in size. The IVC is normal in size and collapses >50% with inspiration. PERICARDIAL EFFUSION There is no evidence of significant pericardial effusion. Critical Notification Critical Value: No <Conclusion> The left ventricle is normal size. The left ventricular systolic function is normal and the ejection fraction is within normal range. The Ejection Fraction is 50-55%. There is mild concentric left ventricular hypertrophy. Doppler and Color Flow revealed trace aortic regurgitation. There is no significant aortic valvular stenosis. Doppler and Color-flow revealed trace mitral regurgitation. Doppler and Color Flow revealed trace tricuspid regurgitation with an estimated PAP of 26 mmHg. Signed by : Scooter Ennis MD Electronically Approved : 07/09/2020 10:51:49
== END ==
LOC: ECHO 08:52
PROVIDERS: ATTEND Internal Medicine Cardiovascular Disease
DX: I48.0 Paroxysmal atrial fibrillation (principal); I51.7 Cardiomegaly
CPT/HCPCS: 93306